=== PATIENT | male | born 1990 | race Caucasian/White ===

== ENCOUNTER 2021-01-06 14:51 | Emergency (ER) | payer OTHER ==
[~2021-01-06] VITALS: Ht 188 cm; Wt 136.6 kg
--- NOTE | 2021-01-06 15:58 | RAD ---
Examination: 3 views of the left fourth digit HISTORY: History of having finger injury, laceration COMPARISON: None available Findings/ impression: Comminuted minimally displaced fracture of the distal aspect of the distal phalanx of the fourth digi t with soft tissue laceration about the distal portion of the fourth digit. Electronically signed by: Rohit Hernandez MD (01/06/2021 3:55 PM) [id number]
[2021-01-06] MEDS: LIDOCAINE 1% PF 2 ML VIAL. INJ ONE ×2 (16:15→16:48)
[2021-01-06] MEDS ORDERED: DIPH,PERTUSS(ACELL),TET VAC/PF 0.5 ML SYRINGE. VAX IM ONE (16:15)
[2021-01-06] MEDS ORDERED: PIPERACILLIN/TAZOBACTAM 3.375 GM in IV NORMAL SALINE 50ML 50 ML IV ONE (16:15)
[2021-01-06] MEDS ORDERED: MORPHINE SULFATE 4 MG/ML VIAL. IV ONE (16:15)
[2021-01-06] MEDS ORDERED: BUPIVACAINE MPF 0.5% 30 ML VIAL. INJ ONE (16:15)
--- NOTE | 2021-01-06 17:13 | PHYS DOC ---
Past Medical History Past Medical History: No Pertinent History Past Surgical History: Other Additional Past Surgical Histo: thumb surgery Smoking Status: Current Every Day Smoker Alcohol Use: None General Adult EDM: Chief Complaint: FINGER INJURY HPI: HPI: Patient is a 30 year old male who presents to the ED today with crush injury to the left ring finger that occurred a couple minutes prior to coming to the ED, patient states his left ring finger got caught in a Vice machine. Patient states he is Right-handed Review of Systems: Review of Systems: Constitutional: Denies fever or chills. [] Musculoskeletal: Denies back pain or joint pain. [] Integument: Reports left ring finger injury Neurologic: Denies headache, focal weakness or sensory changes. [] Psychiatric: Denies depression or anxiety. [] Heart Score: C/O Chest Pain: N/A Risk Factors: Risk Factors: DM, Current or recent (<one month) smoker, HTN, HLP, family history of CAD, obesity. Risk Scores: Score 0 - 3: 2.5% MACE over next 6 weeks - Discharge Home Score 4 - 6: 20.3% MACE over next 6 weeks - Admit for Clinical Observation Score 7 - 10: 72.7% MACE over next 6 weeks - Early Invasive Strategies Current Medications: Current Medications Medications (Trade) Dose Ordered Sig/Dionisio Start Time Stop Time Status Last Admin Dose Admin Bupivacaine HCl (Sensorcaine Mpf 0.5%) 30 ml 1X ONCE 01/06/21 16:15 01/06/21 16:16 DC Diphtheria/ Tetanus/Acell Pertussis (ADACEL TDap SYRINGE) 0.5 ml ONCE ONCE 01/06/21 16:15 01/06/21 16:16 DC 01/06/21 16:52 0.5 ML Lidocaine HCl (Xylocaine-Mpf 1% 2ml Vial) 2 ml 1X ONCE 01/06/21 16:15 01/06/21 16:16 DC Morphine Sulfate (Morphine Sulfate) 4 mg 1X ONCE 01/06/21 16:15 01/06/21 16:16 DC 01/06/21 16:47 4 MG Piperacillin Sod/ Tazobactam Sod 3.375 gm/Sodium Chloride 50 ml @ 100 mls/hr 1X ONCE 01/06/21 16:15 01/06/21 16:44 DC 01/06/21 16:49 100 MLS/HR Allergies: Allergies: Allergies Coded Allergies Type Severity Reaction Last Updated Verified No Known Drug Allergies 01/06/21 No Physical Exam: PE: Constitutional: Well developed, well nourished, no acute distress, non-toxic appearance. [] Skin: Left ring finger nailbed is broken into half there is a 2 cm laceration on the ulnar aspect of the finger. There are multiple small lacerations roughly 0.3 cm each on the ventral aspect of the finger. Adequate ulnar sensation to the left ring finger, +2 left radial pulse. Cap refill less than 2 seconds to l eft fingers Back: No tenderness, no CVA tenderness. [] Extremities: No tenderness, no cyanosis, no clubbing, ROM intact, no edema. [] Neurologic: Alert and oriented X 3, normal motor function, normal sensory function, no focal deficits noted. [] Psychologic: Affect normal, judgement normal, mood normal. [] Current Patient Data: Vital Signs: Vital Signs Date Time Temp Pulse Resp B/P (MAP) Pulse Ox O2 Delivery O2 Flow Rate FiO2 01/06/21 16:47 16 Room Air 01/06/21 15:08 98.0 92 146/75 (98) 97 98.0 EKG: EKG: [] Radiology/Procedures: Radiology/Procedures: []PROCEDURE: FINGER(S) LEFT Examination: 3 views of the left fourth digit HISTORY: History of having finger injury, laceration COMPARISON: None available Findings/ impression: Comminuted minimally displaced fracture of the distal aspect of the distal phalanx of the fourth digit with soft tissue laceration about the distal portion of the fourth digit. Electronically signed by: Rohit Hernandez MD (01/06/2021 3:55 PM) [id number] DICTATED and SIGNED BY: ROHIT HERNANDEZ MD DATE: 01/06/21 [id number] 0 Course & Med Decision Making: Course & Med Decision Making Pertinent Labs and Imaging studies reviewed. (See chart for details) This is a 30-year-old male patient presenting to the ED today with left ring finger injury, patient got his finger smashed in a vice machine. Left ring finger x-ray interpreted by radiologist was noted for comminuted minimally displaced fracture of the distal aspect of the distal phalanx of the fourth digit with soft tissue laceration about the distal portion of the fourth digit. Patient received Zosyn, tetanus shot. Wound was cleaned and covered. Spoke with , accepting physician . Patient will be transported by family. Imelda Disclaimer: Imelda Disclaimer: This electronic medical record was generated, in whole or in part, using a voice recognition dictation system. Departure Departure Impression: Primary Impression: Fracture of distal phalanx of finger of left hand Disposition: 02 SHORT TERM HOSPITAL Condition: STABLE Referrals: NO PCP (PCP) Please head to ER right away NASRIN SANTOS [employer]OP[employer]ICAL DATA TECHNICIAN Jan 06, 2021 17:13
[2021-01-06 17:15] VITALS: BP 159/84
== END 2021-01-06 17:39 | disposition short-term general hospital (02) ==
LOC: ER 14:51
DX: S62.635A Displaced fracture of distal phalanx of left ring finger, initial encounter for closed fracture (principal); F17.200 Nicotine dependence, unspecified, uncomplicated; W23.0XXA Caught, crushed, jammed, or pinched between moving objects, initial encounter; Y93.89 Activity, other specified; Y92.89 Other specified places as the place of occurrence of the external cause; Y99.8 Other external cause status
CPT/HCPCS: 73140; 90471; 90715; 96365; 96375; 99285; J2270; J2543; J3490